=== PATIENT | female | born 1990 | race Asian ===

== ENCOUNTER 2024-04-05 10:48 | Emergency (ER) | payer SELFPAY ==
[~2024-04-05] VITALS: Ht 157.5 cm; Wt 46.0 kg
[2024-04-05] MEDS: OLANZAPINE 10 MG/VIAL IM STA (12:05)
[2024-04-05] MEDS: LORAZEPAM 2MG/ML INJ IM STA (12:05)
[2024-04-05 13:45] VITALS: O2SAT 99
[2024-04-05 14:10] LABS: BASOPHILS % 0.4 % (0.0-2.0); EOSINOPHILS % 0.6 % (0.0-5.0); HEMATOCRIT. 42.6 % (36.0-48.0); LYMPHOCYTES % 17.6 % (20.0-50.0); MEAN CORPUSCULAR HEMOGLOBIN 33.7 pg (28.0-32.0); MEAN CORPUSCULAR HGB CONC 35.2 g/dL (31.0-37.0); MEAN CORPUSCULAR VOLUME 95.5 fL (81.0-99.0); MEAN PLATELET VOLUME 7.6 fl (7.4-10.4); MONOCYTES % 7.3 % (2.0-8.0); NEUTROPHILS % 74.1 % (40.0-76.0); PLATELET 242 x1000/uL (130-400); RED BLOOD CELL COUNT 4.46 mill/uL (4.2-5.4); RED CELL DISTRIBUTION WIDTH 12.8 % (11.6-14.6); WHITE BLOOD COUNT 5.7 x1000/uL (4.5-11.0)
[2024-04-05 14:14] LABS: CHLORIDE 110 mEq/L (98-107); POTASSIUM 3.3 mEq/L (3.5-5.1); SODIUM 143 mEq/L (136-145)
[2024-04-05 14:15] LABS: CARBON DIOXIDE 26 mEq/L (21-32); HCG SCREEN NEGATIVE
[2024-04-05 14:16] LABS: CALCIUM 9.4 mg/dL (8.7-10.4)
[2024-04-05 14:20] LABS: CREATININE 0.7 mg/dL (0.6-1.0); GLUCOSE 101 mg/dL (70-105); UREA NITROGEN BLOOD 7 mg/dL (9-23)
[2024-04-05 14:31] LABS: ETHANOL BLOOD < 10 mg/dL (<10)
[2024-04-06] MEDS: SERTRALINE HCL 25MG TABLET PO SCH (11:18)
[2024-04-06] MEDS: TRAZODONE HCL 50MG TABLET PO SCH (11:18)
[2024-04-06] MEDS: QUETIAPINE FUMARATE 25MG TABLET PO SCH (11:19)
[2024-04-06 12:23] LABS: CLARITY URINE TURBID (CLEAR); COLOR URINE RED (YELLOW); GLUCOSE URINE NEGATIVE (NEGATIVE); KETONES URINE TRACE (NEGATIVE); LEUKOCYTE ESTERASE URINE 2+ (NEGATIVE); NITRITE URINE NEGATIVE (NEGATIVE); OCCULT BLOOD URINE 3+ (NEGATIVE); PROTEIN URINE 2+ (NEGATIVE); SPECIFIC GRAVITY URINE 1.021 (1.005-1.030); UROBILINOGEN URINE 0.2 E.U./dL (0.2-1.0)
[2024-04-06 12:41] LABS: *AMPHETAMINES SCREEN URINE NEGATIVE (NEGATIVE)
[2024-04-06 12:42] LABS: *BARBITURATES SCREEN URINE NEGATIVE (NEGATIVE); *BENZODIAZEPINES SCREEN URINE NEGATIVE (NEGATIVE); *COCAINE SCREEN URINE NEGATIVE (NEGATIVE); CANNABINOID URINE SCREEN NEGATIVE (NEGATIVE); ECSTASY MDMA SCREEN URINE NEGATIVE (NEGATIVE); METHADONE URINE SCREEN NEGATIVE (NEGATIVE); OPIATES URINE SCREEN NEGATIVE (NEGATIVE); PHENCYCLIDINE URINE SCREEN NEGATIVE (NEGATIVE)
[2024-04-06 12:46] LABS: BACTERIA URINE 1+; RBC URINE TNTC /hpf (0-2); SQUAMOUS EPITHELIAL CELL URINE 1+ /lpf (RARE/1+); YEAST URINE NONE SEEN
[2024-04-06] MEDS: NITROFURANTOIN 100MG M/M CAPSULE PO SCH (21:50)
[2024-04-07 14:15] VITALS: BP 135/95; PULSE 96; RESP 20; TEMP 37.4; O2SAT 100
[2024-04-07] MEDS: POTASSIUM CHLORIDE 20MEQ/PACKET PO ONE (14:30)
[2024-04-07] MEDS: POTASSIUM CHLORIDE 20MEQ TABLET SR PO NR (14:36)
== END 2024-04-07 15:12 ==
LOC: ER 10:56
DX: F20.9 Schizophrenia, unspecified (principal); Z79.899 Other long term (current) drug therapy; Z59.00 Homelessness unspecified; Z20.822 Contact with and (suspected) exposure to COVID-19
CPT/HCPCS: 80305; 80048; 81001; 80320; 84703; 85025; 36415; 96372; 99291; 87426; J3490; J2060; Z7610 ×2; C1893; A4606; G0480